=== PATIENT | female | born 1990 | race Caucasian/White ===

== ENCOUNTER → 2016-12-25 | Outpatient (CLI) | payer BC ==
[~2016-12-25] MED LIST: BENZ56AE TP; BIRTH CONTROL; CODE-54 PO; DCS100C PO; FERR-47 PO; FRS325T PO; HYDR-34 PO; IBP600T1 PO; PREN-94 PO
--- NOTE | 2016-12-25 14:03 | Diagnostic Imaging Report ---
EXAMINATION: OB ultrasound. survey. Findings: There is a live single intrauterine with heart rate of 143 beats per minute. The placenta is posterior. There is no placenta previa. The amniotic fluid appears within normal limits. There is a normal appearance of the posterior fossa. No ventriculomegaly. The four-chamber view, the stomach, the kidneys, the urinary bladder and the three-vessel cord are demonstrated. The spine appear unremarkable. The growth parameters are all around 20 weeks and 6 days. This is concordant with gestational age of 20 weeks and 4 days based on provided UDAY of 05/10/[address] Coffman. IMPRESSION: Appropriate growth. Completed survey. Dictated by: Dictated on workstation # [id number]
== END ==
LOC: RAD 12:50
PROVIDERS: ATTEND Obstetrics & Gynecology
DX: Z34.81 Encounter for supervision of other normal pregnancy, first trimester (principal)
CPT/HCPCS: 76805

== ENCOUNTER 2017-04-22 11:46 | Inpatient (IN) | payer BC ==
[2017-04-22] VITALS (40 sets, daily range): BP systolic 107–142; BP diastolic 58–83
[~2017-04-22] VITALS: Ht 165.1 cm; Wt 65.8 kg
[2017-04-22] MEDS ORDERED: LACTATED RINGERS 1,000 ML IV SCH (12:15)
[2017-04-22] MEDS ORDERED: MISOPROSTOL 100 MCG (CYTOTEC) TAB PO NR (12:15)
[2017-04-22] MEDS ORDERED: D5 LR IV SOLUTION 1,000 ML IV SCH (12:17)
--- NOTE | 2017-04-22 12:25 | History & Physical-OB ---
OB - Chief Complaint & HPI Date/Time Date of Admission: Date of Admission: Apr 22, 2017 at 11:46 Time Seen by Provider: 10:30 Chief Complaint/History OB-Reason for Admission/Chief: Induction of Labor Hx : 3 Hx Para: 2 Expected Date of Delivery: May 10, 2017 Gestational Age in Weeks: 37 Gestational Age in Days: 3 Indication for induction: medical complication Other reason for admission: 26 yo @ 37.3 weeks sent for induction due to 4/8 BPP and oligohydramnios of 4 cm. Patient has significant history of abnormal quad screen. Admission Nurse Assessment Rev: Yes History of Labs O pos Antibody neg RI RPR NR HBsAg NR HIV NR GC neg GBS neg Quad screen increased risk for T18 Allergies and Home Medications Allergies Coded Allergies: Tetanus (Unverified Allergy, 02/22/13) Home Medications No Active Prescriptions or Reported Meds OB - History Hx of Present Care: Yes Ultrasounds: Normal mid trimester US Abnormal Ultrasound Findings: Oligo at 37 weeks Obstetrical Complications: Other (Oligohydramnios) Medical Complications: None Obstetrical History Hx Termination: No Hx Multiple Gestation: No Hx Stillbirth: No Hx Complication: No Hx Induced Hypertens: No Hx Maternal Gestational Diabet: No Delivery History Hx Dystocia: No Hx Large For Gestational Age I: No Hx Small for Gestational Age I: No Hx Section: No Hx Vaginal Delivery Post C-Sec: No Hx Blood Disorders: No Adverse Rxn to Tranfusion: No Patient Past Medical History Basal cell ca identified during Immunizations Hepatitis A: No Hepatitis B: No Tetanus Booster (TDap): Less than 5yrs OB - Admission Exam Physical Exam Date Seen by Provider: Apr 22, 2017 Time Seen by Provider: 10:30 HEENT: NCAT Heart: Rhythm Normal Lungs: Clear Abdomen: Gravid Extremities: Normal Reflexes: Normal Cervical Dilatation: 1cm Effacement: 50% Station: -3 Membranes: Intact Heart Rate: 130's Accelerations: Accelerations Present Decelerations: No Decelerations Short Term Variability: Present [facility] Variability: Average (6-25) Contractions on Admission: >10 Minutes Apart Intensity: Mild OB - Assessment/Plan/Diagnosis Assessment Assessment: induction of labor Plan Plan: Induction Induction Method: per Misoprostol Protocol Discharge Diagnosis Diagnosis: 26 yo @ 37.3 weeks Abnormal quad screen elevated risk for T18 w/ normal FFC DNA testing Oligohydramnios at 37 weeks 01/10 BPP GBS neg DESIRAE HARRINGTON DO Apr 22, 2017 12:25
[2017-04-22 12:29] LABS: BASOPHILS % (AUTO) 0 % (0-10); EOSINOPHILS % (AUTO) 0 % (0-10); LYMPHOCYTES # (AUTO) 0.9 X 10^3 (1.0-4.0); LYMPHOCYTES % (AUTO) 13 % (12-44); MEAN CORPUSCULAR HEMOGLOBIN 32 PG (25-34); MEAN CORPUSCULAR HGB CONC 34 G/DL (32-36); MEAN CORPUSCULAR VOLUME 94 FL (80-99); MEAN PLATELET VOLUME 11.1 FL (7.4-10.4); MONOCYTES # (AUTO) 0.6 X 10^3 (0.0-1.0); MONOCYTES % (AUTO) 8 % (0-12); NEUTROPHILS # (AUTO) 5.8 X 10^3 (1.8-7.8); NEUTROPHILS % (AUTO) 79 % (42-75); PLATELET COUNT 170 10^3/uL (130-400); RED CELL DISTRIBUTION WIDTH 13.1 % (10.0-14.5); WHITE BLOOD COUNT 7.3 10^3/uL (4.3-11.0)
[2017-04-22] MEDS ORDERED: CATHETER FLUSH 10 ML SYR IV SCH ×2 (14:00→22:00)
[2017-04-22] MEDS ORDERED: NS IV 1000 ML 1,000 ML ONE (14:24)
[2017-04-22] MEDS ORDERED: TERBUTALINE INJ 1 MG/ML (BRETHINE) AMP ONE (14:44)
[2017-04-22] MEDS ORDERED: SUFENTA 0.6MCG/ML BUPIVA 0.125 100 ML ONE (14:44)
[2017-04-22] MEDS ORDERED: BUPIVACAINE 0.25% 30 ML (SENSORCAINE) VIAL ONE (14:47)
[2017-04-22] MEDS ORDERED: fentaNYL INJECTION 100 MCG/2 ML AMP ONE (14:48)
[2017-04-22] MEDS ORDERED: LACTATED RINGERS 1,000 ML IV ONE (15:22)
[2017-04-22] MEDS ORDERED: EPIDURAL (SUFENTA 0.6MCG/ML BUPIVA 0.125%) 100 ML BAG EPI SCH (15:30)
[2017-04-22] MEDS ORDERED: diphenhydrAMINE 50 MG/ML INJ (BENADRYL) IV PRN (15:30)
[2017-04-22] MEDS ORDERED: CATHETER FLUSH 10 ML SYR IV PRN (15:30)
[2017-04-22] MEDS ORDERED: NALOXONE 0.4 MG/ML 1 ML (NARCAN) VIAL IV PRN (15:30)
[2017-04-22] MEDS ORDERED: ONDANSETRON 4 MG/2 ML (SDV) Z0FRAN IV PRN (15:30)
[2017-04-22] MEDS ORDERED: MISOPROSTOL 100 MCG (CYTOTEC) TAB PO SCH (16:15)
[2017-04-22] MEDS ORDERED: FERR-84 PO (17:04)
[2017-04-22] MEDS ORDERED: PREN-142 PO (17:04)
[2017-04-22] MEDS ORDERED: OXYTOCIN/NORMAL SALINE 500 ML IV SCH ×2 (17:47→20:18)
[2017-04-22] MEDS ORDERED: LIDOCAINE/EPI 1%-1:200,000 (XYLOCAINE) 30 ML VIAL ONE (19:52)
--- NOTE | 2017-04-22 20:23 | OB Labor & Delivery Record ---
L&D History Date of Service Date of Service: Apr 22, 2017 History Expected Date of Delivery: May 10, 2017 Gestational Age in Weeks: 37 Hx : 3 Hx Para: 2 Complications Events: Oliohydramnios, Routine care (abnormal quad T18) Operative Indications (Cesarea: N/A-Vaginal Delivery Intrapartal Events: None Other Complications episodes of prolonged heart rate decelerations L&D Stage1 Stage One Onset of Labor - Date: Apr 22, 2017 Monitors and Tracing Monitor Mode: Internal Heart Rate: 145 Vital Signs VS - Last 72 Hours, by Label 04/22/17 04/22/17 04/22/17 04/22/17 11:50 13:10 14:10 14:31 Pulse 91 80 81 80 Resp 18 18 18 18 B/P (MAP) 123/68 119/70 110/74 137/83 O2 Delivery Room Air Room Air Room Air Room Air 04/22/17 04/22/17 04/22/17 04/22/17 14:59 15:01 15:04 15:07 Pulse 116 123 118 117 Resp 20 20 20 20 B/P (MAP) 132/63 139/62 129/60 130/60 Pulse Ox 97 100 100 100 O2 Delivery Room Air Room Air Room Air Room Air 04/22/17 04/22/17 04/22/17 04/22/17 15:10 15:20 15:25 15:30 Pulse 118 104 104 105 Resp 18 20 20 20 B/P (MAP) 133/69 142/72 142/72 135/68 Pulse Ox 99 100 100 99 O2 Delivery Room Air Room Air Room Air Room Air 04/22/17 04/22/17 04/22/17 04/22/17 15:35 15:40 15:45 15:50 Pulse 95 90 90 88 Resp 20 20 20 20 B/P (MAP) 129/66 124/64 127/59 120/58 Pulse Ox 100 100 100 100 O2 Delivery Room Air Room Air Room Air Room Air 04/22/17 04/22/17 04/22/17 04/22/17 15:55 16:10 16:25 16:40 Temp 100.3 Pulse 90 86 86 83 Resp 18 18 18 18 B/P (MAP) 119/60 119/62 118/59 114/59 Pulse Ox 99 99 99 99 O2 Delivery Room Air Room Air Room Air Room Air 04/22/17 04/22/17 04/22/17 04/22/17 16:55 17:10 17:35 17:40 Temp 100.5 Pulse 79 92 85 Resp 18 18 18 B/P (MAP) 114/63 116/66 120/70 Pulse Ox 99 98 100 O2 Delivery Room Air Room Air Room Air 04/22/17 04/22/17 04/22/17 04/22/17 17:55 18:10 18:25 18:40 Pulse 81 76 74 75 Resp 18 18 18 18 B/P (MAP) 115/61 110/62 111/63 114/64 Pulse Ox 99 98 98 97 O2 Delivery Room Air Room Air Room Air Room Air 04/22/17 04/22/17 18:55 19:00 Temp 99.9 Pulse 76 Resp 18 B/P (MAP) 114/64 Pulse Ox 98 O2 Delivery Room Air Rupture of Membranes Spontaneous Ruture of Membrane: No Amniotic Membrane Rupture Time: 1440 Amniotic Membrane Fluid Desc.: Clear Vaginal Bleeding Description: Normal Show Induction/Anesthesia Epidural Cath Placement - Time: 1506 Progress/Notes 2 prolonged episodes heart rate deceleration into the 70s. L&D Stage2 Stage Two Stage II Date: Apr 22, 2017 Monitors and Tracing Monitor Mode: Internal Heart Rate: 145 Monitor Decelerations: Variable [employer] Variability: Minimal (3-5) Short Term Variability: Present Position: Right Occiput Anterior Presentation: Vertex Cord Descript/Complications Cord Vessel Description: 3 Vessels Complications nuchal cord reduced x 1 Delivery Type Infant Delivery Method: Spontaneous Vaginal Anterior Shoulder: Right Episiotomy/Perineal Laceration Laceraction(s)/Extensions: No Condition of Delivery 1 minute Comment: 7 5 minute Comment: 9 Notes male infant weight pending Condition of Condition of Infant: Living Exam: No Observed Abnormalities Resuscitation Resuscitation: N/A - Spontaneous Resp L&D Stage3 Stage Three Stage III Date: Apr 22, 2017 Pictocin Pitocin Administration mu/min: 4 Pitocin ml/hr: 4 Pitocin Administration Comment: pitocin increased per 's protocol, wide open at delivery of placenta Placenta Delivery Placenta Delivery: Spontaneous Delivery Summary Summary blood loss >1000ml: No Vaginal blood loss >500ml: No 300 Attending at delivery: Desirae Harrington DO Condition of Delivery Examined: Cervix Examined, Uterus Explored Post Hemorrhage: No Condition of Mother stable Condition of (s) stable DESIRAE HARRINGTON DO Apr 22, 2017 20:23
--- NOTE | 2017-04-22 20:24 | Discharge Inst-Women's Service ---
Discharge Inst-Women's Serv Depart Medication/Instructions New, Converted or Re-Newed RX: RX on Chart Consults/Follow Up Additional Follow Up: Yes Orders/Referrals Dr. Harrington in 6 weeks Activity Activity: Activity as Tolerated Driving Instructions: No Driving for 1 Week NO SMOKING: NO SMOKING Nothing Inside Vagina: No Douching, No [place], No Tampons Diet Discharge Diet: No Restrictions Symptoms to Report to : Bleeding Excessive, Pain Increased, Fever Over 101 Degrees F, Vaginal Bleeding Increase, Questions/Concerns For Any Problems or Questions: Contact Your Physician Skin/Wound Care Bathing Instructions: Shower (x 2 weeks) DESIRAE HARRINGTON DO Apr 22, 2017 20:24
[2017-04-22] MEDS ORDERED: DOCU100C37 PO (20:25)
[2017-04-22] MEDS ORDERED: ACET1TAB43 PO (20:25)
[2017-04-22] MEDS ORDERED: IBUP-1773 PO (20:25)
[2017-04-22] MEDS ORDERED: APAP 300 MG/CODEINE 30 MG (TYLENOL #3) TAB PO PRN (20:30)
[2017-04-22] MEDS ORDERED: MEASLES,MUMPS,RUBELLA 1 EA INJ SQ ONE (20:30)
[2017-04-22] MEDS ORDERED: TETANUS,DIPTH,PERTUSS P/F (BOOSTRIX) 0.5 ML VIAL IM ONE (20:30)
[2017-04-22] MEDS ORDERED: WITCH HAZEL(TUCKS) 40 EA JAR TOP PRN (20:30)
[2017-04-22] MEDS ORDERED: DIBUCAINE (NUPERCAINAL) 1% OINT 30 GM TOP PRN (20:30)
[2017-04-22] MEDS ORDERED: BENZOCAINE/MENTHOL (DERMOPLAST) 56 ML CAN TP PRN (20:30)
[2017-04-22] MEDS: DOCUSATE SODIUM 100 MG (COLACE) CAP PO SCH (21:00)
[2017-04-22] MEDS: IBUPROFEN 600 MG (MOTRIN) TAB PO SCH (21:05)
[2017-04-23 03:05] VITALS: BP 109/68
[2017-04-23] MEDS: IBUPROFEN 600 MG (MOTRIN) TAB PO SCH ×4 (03:06→21:02)
[2017-04-23 06:36] LABS: BASOPHILS % (AUTO) 0 % (0-10); EOSINOPHILS % (AUTO) 0 % (0-10); LYMPHOCYTES # (AUTO) 1.3 X 10^3 (1.0-4.0); LYMPHOCYTES % (AUTO) 18 % (12-44); MEAN CORPUSCULAR HEMOGLOBIN 32 PG (25-34); MEAN CORPUSCULAR HGB CONC 33 G/DL (32-36); MEAN CORPUSCULAR VOLUME 95 FL (80-99); MEAN PLATELET VOLUME 10.5 FL (7.4-10.4); MONOCYTES # (AUTO) 0.9 X 10^3 (0.0-1.0); MONOCYTES % (AUTO) 12 % (0-12); NEUTROPHILS # (AUTO) 5.2 X 10^3 (1.8-7.8); NEUTROPHILS % (AUTO) 70 % (42-75); PLATELET COUNT 139 10^3/uL (130-400); RED BLOOD COUNT 3.22 10^6/uL (4.35-5.85); RED CELL DISTRIBUTION WIDTH 13.2 % (10.0-14.5); WHITE BLOOD COUNT 7.4 10^3/uL (4.3-11.0)
[2017-04-23] MEDS: FERROUS SULF 325 MG (IRON) TAB PO SCH (09:19)
[2017-04-23] MEDS: DOCUSATE SODIUM 100 MG (COLACE) CAP PO SCH ×2 (09:19→21:03)
[2017-04-23] MEDS: PRENATAL VITAMIN 1 EA TAB PO SCH (09:19)
[2017-04-23 09:20] VITALS: BP 108/66
[2017-04-23 12:45] VITALS: BP 110/71
--- NOTE | 2017-04-23 13:37 | Progress Note-Standard ---
Standard Progress Note Progress Notes/Assess & Plan Date Seen by Provider: Apr 23, 2017 Time Seen by Provider: 13:34 Progress/Assessment & Plan Patient doing well PPD 1 NVD. Reports doing very well. Denies heavy lochia. Pain well controlled, . Vital Sign - Last 24 Hours 04/22/17 04/22/17 04/22/17 04/22/17 14:10 14:31 14:59 15:01 Pulse 81 80 116 123 Resp 18 18 20 20 B/P (MAP) 110/74 137/83 132/63 139/62 Pulse Ox 97 100 O2 Delivery Room Air Room Air Room Air Room Air 04/22/17 04/22/17 04/22/17 04/22/17 15:04 15:07 15:10 15:20 Pulse 118 117 118 104 Resp 20 20 18 20 B/P (MAP) 129/60 130/60 133/69 142/72 Pulse Ox 100 100 99 100 O2 Delivery Room Air Room Air Room Air Room Air 04/22/17 04/22/17 04/22/17 04/22/17 15:25 15:30 15:35 15:40 Pulse 104 105 95 90 Resp 20 20 20 20 B/P (MAP) 142/72 135/68 129/66 124/64 Pulse Ox 100 99 100 100 O2 Delivery Room Air Room Air Room Air Room Air 04/22/17 04/22/17 04/22/17 04/22/17 15:45 15:50 15:55 16:10 Pulse 90 88 90 86 Resp 20 20 18 18 B/P (MAP) 127/59 120/58 119/60 119/62 Pulse Ox 100 100 99 99 O2 Delivery Room Air Room Air Room Air Room Air 04/22/17 04/22/17 04/22/17 04/22/17 16:25 16:40 16:55 17:10 Temp 100.3 Pulse 86 83 79 92 Resp 18 18 18 18 B/P (MAP) 118/59 114/59 114/63 116/66 Pulse Ox 99 99 99 98 O2 Delivery Room Air Room Air Room Air Room Air 04/22/17 04/22/17 04/22/17 04/22/17 17:35 17:40 17:55 18:10 Temp 100.5 Pulse 85 81 76 Resp 18 18 18 B/P (MAP) 120/70 115/61 110/62 Pulse Ox 100 99 98 O2 Delivery Room Air Room Air Room Air 04/22/17 04/22/17 04/22/17 04/22/17 18:25 18:40 18:55 19:00 Temp 99.9 Pulse 74 75 76 Resp 18 18 18 B/P (MAP) 111/63 114/64 114/64 Pulse Ox 98 97 98 O2 Delivery Room Air Room Air Room Air 04/22/17 04/22/17 04/22/17 04/22/17 19:15 19:30 19:45 20:00 Pulse 76 81 83 90 Resp 18 18 18 18 B/P (MAP) 116/71 112/67 117/73 120/78 Pulse Ox 97 98 98 99 O2 Delivery Room Air Room Air Room Air Room Air 04/22/17 04/22/17 04/22/17 04/22/17 20:06 20:09 20:24 20:39 Temp 100.7 99.6 Pulse 89 90 83 72 Resp 18 18 18 18 B/P (MAP) 117/58 117/58 108/59 Pulse Ox 97 O2 Delivery Room Air 04/22/17 04/22/17 04/22/17 04/22/17 20:55 21:10 21:24 21:51 Temp 98.6 99.0 98.5 98.4 Pulse 81 81 78 74 Resp 18 18 18 18 B/P (MAP) 125/69 122/63 119/59 114/58 04/22/17 04/23/17 04/23/17 04/23/17 23:46 03:05 09:20 12:45 Temp 97.6 97.6 98.2 98.1 Pulse 73 73 79 69 Resp 18 18 18 18 B/P (MAP) 107/69 109/68 108/66 110/71 Pulse Ox 97 97 98 O2 Delivery Room Air Room Air Intake and Output 04/22/17 04/22/17 04/23/17 15:00 23:00 07:00 Intake Total 2000 ml 1550 ml Balance 2000 ml 1550 ml Laboratory Tests Test 04/23/17 06:20 Range/Units White Blood Count 7.4 4.3-11.0 10^3/uL Red Blood Count 3.22 L 4.35-5.85 10^6/uL Hemoglobin 10.2 L 11.5-16.0 G/DL Hematocrit 31 L 35-52 % Mean Corpuscular Volume 95 80-99 FL Mean Corpuscular Hemoglobin 32 25-34 PG Mean Corpuscular Hemoglobin Concent 33 32-36 G/DL Red Cell Distribution Width 13.2 10.0-14.5 % Platelet Count 139 130-400 10^3/uL Mean Platelet Volume 10.5 H 7.4-10.4 FL Neutrophils (%) (Auto) 70 42-75 % Lymphocytes (%) (Auto) 18 12-44 % Monocytes (%) (Auto) 12 0-12 % Eosinophils (%) (Auto) 0 0-10 % Basophils (%) (Auto) 0 0-10 % Neutrophils # (Auto) 5.2 1.8-7.8 X 10^3 Lymphocytes # (Auto) 1.3 1.0-4.0 X 10^3 Monocytes # (Auto) 0.9 0.0-1.0 X 10^3 Eosinophils # (Auto) 0.0 0.0-0.3 10^3/uL Basophils # (Auto) 0.0 0.0-0.1 10^3/uL Diagnosis: PPD 1 NVD Thrombocytopenia/ gestational P: Repeat cbc tomorrow Anticipate dc tomorrow Continue routine care DESIRAE HARRINGTON DO Apr 23, 2017 1:37 pm
[2017-04-23 16:00] VITALS: BP 109/64
[2017-04-23 20:30] VITALS: BP 125/81
[2017-04-24] MEDS: IBUPROFEN 600 MG (MOTRIN) TAB PO SCH ×2 (03:23→09:12)
[2017-04-24 03:30] VITALS: BP 97/61
[2017-04-24 07:05] LABS: MEAN PLATELET VOLUME 10.9 FL (7.4-10.4); RED BLOOD COUNT 3.47 10^6/uL (4.35-5.85); RED CELL DISTRIBUTION WIDTH 13.2 % (10.0-14.5); WHITE BLOOD COUNT 6.4 10^3/uL (4.3-11.0)
--- NOTE | 2017-04-24 07:26 | Progress Note-Standard ---
Standard Progress Note Progress Notes/Assess & Plan Date Seen by Provider: Apr 24, 2017 Time Seen by Provider: 07:30 Progress/Assessment & Plan Patient doing well PPD 2 NVD. Reports doing very well. Denies heavy lochia. Pain well controlled, . Vital Sign - Last 24 Hours 04/23/17 04/23/17 04/23/17 04/23/17 09:20 12:45 16:00 20:30 Temp 98.2 98.1 98.1 97.9 Pulse 79 69 70 74 Resp 18 18 18 18 B/P (MAP) 108/66 110/71 109/64 125/81 Pulse Ox 98 97 97 O2 Delivery Room Air Room Air Room Air Room Air 04/24/17 03:30 Temp 97.0 Pulse 75 Resp 18 B/P (MAP) 97/61 Pulse Ox 96 O2 Delivery Room Air Laboratory Tests Test 04/24/17 06:40 Range/Units White Blood Count 6.4 4.3-11.0 10^3/uL Red Blood Count 3.47 L 4.35-5.85 10^6/uL Hemoglobin 10.9 L 11.5-16.0 G/DL Hematocrit 33 L 35-52 % Mean Corpuscular Volume 95 80-99 FL Mean Corpuscular Hemoglobin 31 25-34 PG Mean Corpuscular Hemoglobin Concent 33 32-36 G/DL Red Cell Distribution Width 13.2 10.0-14.5 % Platelet Count 159 130-400 10^3/uL Mean Platelet Volume 10.9 H 7.4-10.4 FL Diagnosis: PPD 2 NVD Thrombocytopenia/ gestational- improving P: Repeat cbc tomorrow Anticipate dc today Continue routine care DESIRAE HARRINGTON DO Apr 24, 2017 7:26 am
[2017-04-24] MEDS: FERROUS SULF 325 MG (IRON) TAB PO SCH (09:12)
[2017-04-24] MEDS: DOCUSATE SODIUM 100 MG (COLACE) CAP PO SCH (09:12)
[2017-04-24] MEDS: PRENATAL VITAMIN 1 EA TAB PO SCH (09:12)
[2017-04-24 09:15] VITALS: BP 112/66
== END 2017-04-24 14:00 | disposition home or self-care (01) | DRG 775 ==
LOC: LDRP 11:46
PROVIDERS: ADMIT Obstetrics & Gynecology; ATTEND Obstetrics & Gynecology
PROC: 10E0XZZ Delivery of Products of Conception, External Approach (ICD-10-PCS; principal; 2017-04-22)
PROC: 3E0P7GC Introduction of Other Therapeutic Substance into Female Reproductive, Via Natural or Artificial Opening (ICD-10-PCS; 2017-04-22)
DX: O41.03X0 Oligohydramnios, third trimester, not applicable or unspecified (principal); O99.13 Other diseases of the blood and blood-forming organs and certain disorders involving the immune mechanism complicating the puerperium; D69.6 Thrombocytopenia, unspecified; Z3A.37 37 weeks gestation of pregnancy; Z37.0 Single live birth
CPT/HCPCS: 36415; 85025; 85027; 86850; 86900; 86901